=== PATIENT | male | born 1990 ===

== ENCOUNTER 2016-10-26 13:35 | Emergency (ER) | payer MEDICAID ==
[2016-10-26] MEDS ORDERED: Propofol 10 mg/ml Inj (20 ML) ONE (13:52)
[2016-10-26 14:13] VITALS: PULSE 84; RESP 16; TEMP 98.2; O2SAT 99
--- NOTE | 2016-10-26 14:52 | ED PDOC ---
HPI: General Adult Time Seen by Provider: 10/26/16 14:38 Chief Complaint (Nursing): Medical Clearance Chief Complaint (Provider): Scabies History Per: Patient History/Exam Limitations: no limitations Onset/Duration Of Symptoms: Days Have you had recent travel within the past 21 days to any of the following countries: [place], [place], [place] or [place]?: No Current Symptoms Are (Timing): Still Present Severity: Mild Additional Complaint(s): Pt states he was diagnosed with scabies last week. Pt states he only used half of the cream because he gave some to a friend. Pt states symptoms improved but are now getting worse again. Past Medical History Reviewed: Historical Data, Nursing Documentation, Vital Signs Vital Signs: Last Vital Signs Temp 98.2 F 10/26/16 14:11 Pulse 84 10/26/16 14:11 Resp 16 10/26/16 14:11 BP 107/57 L 10/26/16 14:11 Pulse Ox 99 10/26/16 14:52 - Medical History PMH: No Chronic Diseases Denies: Diabetes, Hepatitis, HIV, HTN, Seizures, Sexually Transmitted Disease - Surgical History Surgical History: No Surg Hx - Family History Family History: States: Unknown Family Hx - Living Arrangements Living Arrangements: With Family - Social History Current smoker - smoking cessation education provided: No Alcohol: None Drugs: Denies - Home Medications Home Medications: Ambulatory Orders Medication Instructions Recorded Permethrin 5% [Permethrin] 1 applic TP ONCE #1 tube 10/13/16 Permethrin 5% [Permethrin 5% Cream] 30 g TOP ONCE #30 tube 10/26/16 - Allergies Allergies/Adverse Reactions: Allergies Allergy/AdvReac Type Severity Reaction Status Date / Time No Known Allergies Allergy Verified 10/12/16 23:56 Review of Systems ROS Statement: Except As Marked, All Systems Reviewed And Found Negative Skin: Positive for: Rash Physical Exam - Reviewed Nursing Documentation Reviewed: Yes Vital Signs Reviewed: Yes - Physical Exam Appears: Positive for: Well, Non-toxic, No Acute Distress Head Exam: Positive for: ATRAUMATIC, NORMAL INSPECTION, NORMOCEPHALIC Skin: Positive for: Warm, Rash (scabbing areas on the hands, interdigit space with some burrowing ). Negative for: Normal Color Eye Exam: Positive for: Normal appearance ENT: Positive for: Normal ENT Inspection Neck: Positive for: Normal, Painless ROM Respiratory: Negative for: Accessory Muscle Use Back: Positive for: Normal Inspection Extremity: Positive for: Normal ROM. Negative for: Tenderness Neurologic/Psych: Positive for: Alert - ECG O2 Sat by Pulse Oximetry: 99 Disposition - Clinical Impression Clinical Impression: Scabies - Patient ED Disposition Is Patient to be Admitted: No Counseled Patient/Family Regarding: Diagnosis, Need For Followup, Rx Given - Disposition Referrals: [facility] [Outside] Disposition: Routine/Home Disposition Time: 14:51 Condition: GOOD Prescriptions: Permethrin 5% [Permethrin 5% Cream] 30 g TOP ONCE #30 tube Instructions: Scabies (ED)
[2016-10-26 15:20] VITALS: BP 111/61
== END 2016-10-26 15:19 | disposition home or self-care (01) ==
LOC: H.ER 13:35
DX: B86 Scabies (principal)

== ENCOUNTER 2018-04-08 03:06 | Emergency (ER) | payer MEDICAID, OTHER ==
[2018-04-08 03:20] VITALS: O2SAT 98
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
[2018-04-08 05:33] VITALS: BP 124/77; PULSE 76; RESP 16; TEMP 98
--- NOTE | 2018-04-08 08:56 | CT ---
Date of service: 04/08/2018 PROCEDURE: CT HEAD WITHOUT CONTRAST. HISTORY: head injury COMPARISON: None available. TECHNIQUE: Axial computed tomography images were obtained through the head/brain without intravenous contrast. Radiation dose: Total exam DLP = mGy-cm. This CT exam was performed using one or more of the following dose reduction techniques: Automated exposure control, adjustment of the mA and/or kV according to patient size, and/or use of iterative reconstruction technique. FINDINGS: HEMORRHAGE: No intracranial hemorrhage. BRAIN: No mass effect or edema. No atrophy or chronic microvascular ischemic changes. VENTRICLES: Unremarkable. No hydrocephalus. CALVARIUM: Unremarkable. PARANASAL SINUSES: Unremarkable as visualized. No significant inflammatory changes. MASTOID AIR CELLS: Unremarkable as visualized. No inflammatory changes. OTHER FINDINGS: None. IMPRESSION: Normal CT of the Head.
--- NOTE | 2018-04-08 09:11 | RAD ---
Date of service: 04/08/2018 PROCEDURE: Radiographs of the Left Shoulder HISTORY: injury, pain COMPARISON: No prior. FINDINGS: BONES: Normal. No fracture. JOINTS: Normal. Glenohumeral and acromioclavicular joints preserved. No osteoarthritis. SOFT TISSUES: Normal. OTHER FINDINGS: None. IMPRESSION: Normal radiographs of the left shoulder.
--- NOTE | 2018-04-08 09:17 | RAD ---
Date of service: 04/08/2018 HISTORY: injury, pain COMPARISON: No prior FINDINGS: BONES: Normal. No fracture. JOINTS: Normal. No osteoarthritis. SOFT TISSUE: Normal. OTHER FINDINGS: None . IMPRESSION: Normal Bone Xray.
== END 2018-04-08 05:33 ==
LOC: H.ER 03:06
DX: S09.90XA Unspecified injury of head, initial encounter (principal); M25.512 Pain in left shoulder; S00.01XA Abrasion of scalp, initial encounter; Y35.813A Legal intervention involving manhandling, suspect injured, initial encounter
CPT/HCPCS: 70450; 73010; 73030; 96372; 99284; J1885

== ENCOUNTER 2018-04-12 18:58 | Emergency (ER) | payer OTHER ==
[2018-04-12 19:09] VITALS: TEMP 98.2; O2SAT 98
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
[2018-04-12 21:00] LABS: BARBITURATES, UR NEGATIVE (NEGATIVE); BENZODIAZEPINES, UR NEGATIVE (NEGATIVE); OPIATES, UR NEGATIVE (NEGATIVE); PHENCYCLIDINE, UR NEGATIVE (NEGATIVE)
[2018-04-12 21:06] VITALS: BP 112/68; PULSE 76; RESP 16
--- NOTE | 2018-04-13 07:50 | CARD ---
APPROVED REPORT Date of service: 04/12/2018 EKG Measurement Heart [id number] <Conclusion> Normal sinus rhythm Voltage criteria for left ventricular hypertrophy Abnormal ECG
== END 2018-04-12 21:22 | disposition home or self-care (01) ==
LOC: H.ER 18:58
DX: S43.402A Unspecified sprain of left shoulder joint, initial encounter (principal); Y35.813A Legal intervention involving manhandling, suspect injured, initial encounter; R00.0 Tachycardia, unspecified

== ENCOUNTER 2018-05-02 08:11 | Emergency (ER) | payer OTHER ==
[2018-05-02] MEDS ORDERED: DiphenhydrAMINE 50 mg/ml Inj ONE (08:36)
[2018-05-02] MEDS ORDERED: DiphenhydrAMINE 50 mg/ml Inj IV STA (08:42)
[2018-05-02] MEDS ORDERED: Sodium Chloride 0.9% 1,000 ML IV SCH (08:45)
--- NOTE | 2018-05-02 09:07 | ED PDOC ---
HPI: SOB/CHF/COPD Time Seen by Provider: 05/02/18 08:18 Chief Complaint (Nursing): Shortness Of Breath Chief Complaint (Provider): Throat Foreign Body Sensation History Per: Patient History/Exam Limitations: no limitations Onset/Duration Of Symptoms: Hrs (x4) Additional Complaint(s): 27 year old male, with a past medical history of asthma, presenting for evaluation of throat pain x4 hours. Patient reports he used his inhaler around 4am and "felt something go down his throat". Patient states he afterwards went to lay down in his bed, but immediately ran to the bathroom to throw up. Patient states he continued to feel a foreign body sensation in his throat along with continued nausea and vomiting. Patient also states he felt his face go numb and swell, prompting him to present to ED. Patient reports no vomiting in ED, but continued dry heaves and some difficulty breathing. Patient otherwise denies any fever, chills, abdominal pain, back pain, and urinary or bowel complaints. PMD: None Past Medical History Reviewed: Historical Data, Nursing Documentation, Vital Signs Vital Signs: Last Vital Signs Temp 98.0 F 05/02/18 14:07 Pulse 70 05/02/18 14:07 Resp 18 05/02/18 14:07 BP 124/78 05/02/18 14:07 Pulse Ox 98 05/02/18 14:07 - Medical History PMH: Asthma Denies: Diabetes, Hepatitis, HIV, HTN, Seizures, Sexually Transmitted Disease - Family History Family History: States: Unknown Family Hx - Home Medications Home Medications: Ambulatory Orders Medication Instructions Recorded Permethrin 5% [Permethrin] 1 applic TP ONCE #1 tube 10/13/16 Permethrin 5% [Permethrin 5% Cream] 30 g TOP ONCE #30 tube 10/26/16 Acetaminophen [Acetaminophen 8 650 mg PO Q8 PRN #21 tablet.er 04/12/18 Hour] Ibuprofen [Motrin Tab] 600 mg PO Q6 PRN #20 tab 04/12/18 Lidocaine 2% Viscous 15 ml MM QID #100 bottle 05/02/18 - Allergies Allergies/Adverse Reactions: Allergies Allergy/AdvReac Type Severity Reaction Status Date / Time FISH Allergy vomiting Verified 04/12/18 19:04 and swelling Review of Systems ROS Statement: Except As Marked, All Systems Reviewed And Found Negative Constitutional: Negative for: Fever, Chills ENT: Positive for: Throat Pain Respiratory: Positive for: Shortness of Breath Gastrointestinal: Positive for: Nausea, Vomiting. Negative for: Abdominal Pain Musculoskeletal: Negative for: Back Pain Physical Exam - Reviewed Nursing Documentation Reviewed: Yes Vital Signs Reviewed: Yes - Physical Exam Appears: Positive for: Non-toxic, No Acute Distress Head Exam: Positive for: ATRAUMATIC, NORMAL INSPECTION, NORMOCEPHALIC Skin: Positive for: Normal Color, Warm, Dry Eye Exam: Positive for: EOMI, Normal appearance, PERRL ENT: Positive for: Normal ENT Inspection Neck: Positive for: Normal, Painless ROM, Supple Cardiovascular/Chest: Positive for: Regular Rate, Rhythm. Negative for: Murmur Respiratory: Positive for: Normal Breath Sounds. Negative for: Respiratory Distress Gastrointestinal/Abdominal: Positive for: Normal Exam, Soft. Negative for: Tenderness Back: Positive for: Normal Inspection. Negative for: L CVA Tenderness, R CVA Tenderness, Vertebral Tenderness Extremity: Positive for: Normal ROM. Negative for: Deformity Neurologic/Psych: Positive for: Alert, Oriented. Negative for: Motor/Sensory Deficits - Laboratory Results Result Diagrams: 05/02/18 08:30 05/02/18 08:30 - Radiology X-Ray: Viewed By Me, Read By Radiologist X-Ray Interpretation: No Acute Disease - Progress Re-evaluation Time: 13:00 Condition: Improved Medical Decision Making Medical Decision Makin Plan: -EKG -FERNANDO -Urine drug screen -CBC -CXR -Benadryl 25mg IV -NS 1L IVB -Solu-Medrol 125mg IVP -Zofran 4mg IV -woodyard operator -IV insertion -Reevaluation Scribe Attestation: Documented by Corey Vergara, acting as a scribe for Erika Melvin MD. Provider Scribe Attestation: All medical record entries made by the Scribe were at my direction and personally dictated by me. I have reviewed the chart and agree that the record accurately reflects my personal performance of the history, physical exam, medical decision making, and the department course for this patient. I have also personally directed, reviewed, and agree with the discharge instructions and disposition. Disposition - Clinical Impression Clinical Impression: Uvular swelling - Patient ED Disposition Is Patient to be Admitted: No Doctor Will See Patient In The: Office Counseled Patient/Family Regarding: Diagnosis, Need For Followup, Rx Given - Disposition Disposition: Routine/Home Disposition Time: 13:30 Condition: IMPROVED Prescriptions: Lidocaine 2% Viscous 15 ml MM QID #100 bottle Instructions: Sore Throat, Adult (DC) Forms: [facility] (Slovenian) - POA Present On Arrival: None
[2018-05-02 09:15] LABS: BASO % 0.6 % (0.0-2.0); EOS # 0.1 K/uL (0.0-0.7); EOS % 0.8 % (0.0-4.0); HEMOGLOBIN 16.3 g/dL (12.0-18.0); LYMPH # 2.1 K/uL (1.0-4.3); LYMPH % 26.3 % (20.0-40.0); MEAN CORPUSCULAR HEMOGLOBIN 31.7 pg (27.0-31.0); MEAN CORPUSCULAR HGB CONC 34.9 g/dL (33.0-37.0); MEAN PLATELET VOLUME 8.3 fl (7.2-11.7); MONO # 0.4 K/uL (0.0-0.8); MONO % 5.5 % (0.0-10.0); NEUT # 5.2 K/uL (1.8-7.0); NEUT % 66.8 % (50.0-75.0); NRBC % 0.1 % (0.0-0.0); RBC 5.13 Mil/uL (4.40-5.90); RED CELL DISTRIBUTION WIDTH 12.5 % (11.5-14.5); WHITE BLOOD COUNT 7.8 K/uL (4.8-10.8)
[2018-05-02 09:18] LABS: ALB/GLOB RATIO 1.2 (1.0-2.1); ALBUMIN 4.2 g/dL (3.5-5.0); ALT/SGPT 27 U/L (21-72); AST/SGOT 22 U/L (17-59); BLOOD UREA NITROGEN 12 mg/dl (9-20); CALCIUM 9.3 mg/dL (8.4-10.2); GFR NON-AFRICAN AMERICAN > 60
[2018-05-02 10:00] VITALS: O2SAT 98
[2018-05-02 10:02] VITALS: RESP 18
--- NOTE | 2018-05-02 10:21 | RAD ---
Date of service: 05/02/2018 HISTORY: something is stuck in throat after inhaler COMPARISON: 06/23/2012 FINDINGS: LUNGS: No active pulmonary disease. PLEURA: No significant pleural effusion identified, no pneumothorax apparent. CARDIOVASCULAR: Normal. OSSEOUS STRUCTURES: No significant abnormalities. VISUALIZED UPPER ABDOMEN: Normal. OTHER FINDINGS: None. IMPRESSION: No active disease.
[2018-05-02 12:59] LABS: BARBITURATES, UR NEGATIVE (NEGATIVE); BENZODIAZEPINES, UR NEGATIVE (NEGATIVE); OPIATES, UR NEGATIVE (NEGATIVE); PHENCYCLIDINE, UR NEGATIVE (NEGATIVE)
[2018-05-02 14:08] VITALS: BP 124/78; PULSE 70; TEMP 98
--- NOTE | 2018-05-02 17:58 | CARD ---
APPROVED REPORT Date of service: 05/02/2018 EKG Measurement Heart [id number] <Conclusion> Normal sinus rhythm Minimal voltage criteria for LVH, may be normal variant Borderline ECG
== END 2018-05-02 14:25 | disposition home or self-care (01) ==
LOC: H.ER 08:11
DX: R60.0 Localized edema (principal); R09.89 Other specified symptoms and signs involving the circulatory and respiratory systems
CPT/HCPCS: 71045; 80053; 80320; 80324; 80345; 80346; 80349; 80353; 80358; 80361; 83992; 85025; 93005; 96374; 96375; 99285; J1200; J2405; J2930; J7030

== ENCOUNTER 2018-11-16 22:10 | Emergency (ER) | payer SELFPAY ==
[2018-11-16 22:23] VITALS: RESP 18
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
[2018-11-16 23:36] LABS: BASO # 0.1 K/uL (0.0-0.2); BASO % 0.9 % (0.0-2.0); EOS # 0.2 K/uL (0.0-0.7); EOS % 1.2 % (0.0-4.0); HEMOGLOBIN 14.2 g/dL (12.0-18.0); LYMPH # 1.3 K/uL (1.0-4.3); LYMPH % 9.5 % (20.0-40.0); MEAN CELL VOLUME 92.3 fl (80.0-94.0); MEAN CORPUSCULAR HEMOGLOBIN 31.2 pg (27.0-31.0); MEAN CORPUSCULAR HGB CONC 33.8 g/dL (33.0-37.0); MONO # 0.6 K/uL (0.0-0.8); MONO % 4.9 % (0.0-10.0); NEUT % 83.5 % (50.0-75.0); PLATELET COUNT 306 K/uL (130-400); RBC 4.55 Mil/uL (4.40-5.90); RED CELL DISTRIBUTION WIDTH 13.2 % (11.5-14.5); WHITE BLOOD COUNT 13.2 K/uL (4.8-10.8)
[2018-11-16 23:50] LABS: ALB/GLOB RATIO 1.3 (1.0-2.1); ALBUMIN 4.3 g/dL (3.5-5.0); ALT/SGPT 23 U/L (21-72); AST/SGOT 22 U/L (17-59); BLOOD UREA NITROGEN 14 mg/dl (9-20); CALCIUM 9.4 mg/dL (8.4-10.2); GFR NON-AFRICAN AMERICAN > 60
[2018-11-17] MEDS ORDERED: Tdap Vaccine 0.5 ml Vial (10-64 yrs) IM ONE ×2 (00:28→00:42)
[2018-11-17 01:03] LABS: BARBITURATES, UR NEGATIVE (NEGATIVE); BENZODIAZEPINES, UR NEGATIVE (NEGATIVE); OPIATES, UR NEGATIVE (NEGATIVE); PHENCYCLIDINE, UR NEGATIVE (NEGATIVE)
[2018-11-17 01:39] LABS: BANDS 1 % (0-2); EOSINOPHIL 1 % (0-7); LYMPHOCYTE 11 % (20-50); MONOCYTE 4 % (0-10); NEUTROPHIL 83 % (42-75); PLATELET ESTIMATE NORMAL (NORMAL); TOTAL CELLS COUNTED 100
[2018-11-17 01:40] LABS: ANISOCYTOSIS SLIGHT; LARGE PLATELETS PRESENT; STOMATOCYTES SLIGHT
[2018-11-17 02:00] VITALS: BP 109/92; PULSE 74; TEMP 98.3
[2018-11-17 03:42] VITALS: O2SAT 98
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
== END 2018-11-17 01:58 | disposition home or self-care (01) ==
LOC: H.ER 22:10
DX: F43.20 Adjustment disorder, unspecified (principal); S00.93XA Contusion of unspecified part of head, initial encounter; S00.91XA Abrasion of unspecified part of head, initial encounter; S63.501A Unspecified sprain of right wrist, initial encounter; S43.409A Unspecified sprain of unspecified shoulder joint, initial encounter; J45.909 Unspecified asthma, uncomplicated; Y04.2XXA Assault by strike against or bumped into by another person, initial encounter
CPT/HCPCS: 70450; 70486; 72070; 72125; 73030; 73080; 73090; 73110; 80053; 85025; 90471; 90715; 99281; G0480

== ENCOUNTER 2018-12-05 15:05 | Emergency (ER) | payer SELFPAY ==
[2018-12-05 15:13] VITALS: PULSE 80; TEMP 98.8; O2SAT 99
--- NOTE | 2018-12-05 15:36 | ED PDOC ---
HPI: Psych/Substance Abuse Time Seen by Provider: 12/05/18 15:17 Chief Complaint (Nursing): Medical Clearance Chief Complaint (Provider): Medical Clearance History Per: Patient, Other (PD) History/Exam Limitations: no limitations Associated Symptoms: denies: Suicidal Thoughts, Suicidal Plan Involuntary Hold By: Local Law Enforcement Additional Complaint(s): 28 year old male presents with [facility] for medical and psychiatric clearance for incarceration. Patient is in custody for drug possession. He states he smokes marijuana, last smoked marijuana this morning. Otherwise, patient denies any physical complaints at present. Also denies suicidal ideation, homicidal ideation, or A/V hallucinations. PMD: No Family Provider Past Medical History Reviewed: Historical Data, Nursing Documentation, Vital Signs Vital Signs: Last Vital Signs Temp 98.8 F 12/05/18 15:13 Pulse 80 12/05/18 15:13 Resp 16 12/05/18 15:13 BP 122/85 12/05/18 15:13 Pulse Ox 99 12/05/18 15:13 Primary Care Provider: FAMILY PROVIDER,NO - Medical History PMH: Asthma, Bipolar Disorder - Surgical History Other surgeries: right hand - Family History Family History: States: Unknown Family Hx - Social History Drugs: Cannabis - Home Medications Home Medications: Ambulatory Orders Medication Instructions Recorded Permethrin 5% [Permethrin] 1 applic TP ONCE #1 tube 10/13/16 Permethrin 5% [Permethrin 5% Cream] 30 g TOP ONCE #30 tube 10/26/16 Acetaminophen [Acetaminophen 8 650 mg PO Q8 PRN #21 tablet.er 04/12/18 Hour] Ibuprofen [Motrin Tab] 600 mg PO Q6 PRN #20 tab 04/12/18 Lidocaine 2% Viscous 15 ml MM QID #100 bottle 05/02/18 - Allergies Allergies/Adverse Reactions: Allergies Allergy/AdvReac Type Severity Reaction Status Date / Time FISH Allergy vomiting Verified 12/05/18 15:12 and swelling Review of Systems ROS Statement: Except As Marked, All Systems Reviewed And Found Negative Cardiovascular: Negative for: Chest Pain Respiratory: Negative for: Shortness of Breath Gastrointestinal: Negative for: Nausea, Vomiting, Abdominal Pain, Diarrhea Psych: Negative for: Suicidal ideation, Other (homicidal ideation, hallucinations ) Physical Exam - Reviewed Nursing Documentation Reviewed: Yes Vital Signs Reviewed: Yes - Physical Exam Comments: GENERAL APPEARANCE: Patient is awake, alert, oriented x 3, in no acute distress. Resting comfortably. SKIN: Warm, dry; (-) cyanosis HEAD: Atraumatic EYES: (-) conjunctival injection ENMT: Mucous membranes moist. Airway patent: (-) stridor. NECK: Supple, FROM HEART AND CARDIOVASCULAR: (-) irregularity CHEST AND RESPIRATORY: (-) rales, (-) rhonchi, (-) wheezes; breath sounds equal. Respirations even and nonlabored. ABDOMEN: Soft, (-) distention, (-) tenderness, (-) guarding. NEURO AND PSYCH: Mental status as above. Affect: flat. (-) facial asymmetry. Gait: steady. Speech: clear. - ECG O2 Sat by Pulse Oximetry: 99 (RA) Pulse Ox Interpretation: Normal Medical Decision Making Medical Decision Making: Time: 1529 Impression: 28yo male presents for medical and psychiatric clearance for incarceration Plan: --Crisis evaluation --Re-evaluation 0 Per crisis evaluation, patient to be discharged into PD custody with the diagnosis of adjustment disorder per Dr Quinn. On re-evaluation, patient offers no complaints. On exam, patient remains AAOx3, in no acute distress. Vitals stable. Lab/Diagnostic results d/w the patient in great detail. Diagnosis of medical clearance for incarceration, adjustment disorder d/w the patient. Based on history, exam and diagnostic results, plan will be for discharge into PD custody. Return to the emergency room at any time for any new or worsening symptoms. Patient states he fully agrees with and understands discharge instructions. States that he agrees with the plan and disposition. Verbalized and repeated discharge instructions and plan. I have given the patient opportunity to ask any additional questions. Scribe Attestation: Documented by Alpesh Purcell, acting as a scribe for Ester Cote PA-C. Provider Scribe Attestation: All medical record entries made by the Scribe were at my direction and personally dictated by me. I have reviewed the chart and agree that the record accurately reflects my personal performance of the history, physical exam, medical decision making, and the department course for this patient. I have also personally directed, reviewed, and agree with the discharge instructions and disposition. Disposition - Clinical Impression Clinical Impression: Medical clearance for incarceration, Adjustment disorder - Patient ED Disposition Is Patient to be Admitted: No Counseled Patient/Family Regarding: Studies Performed, Diagnosis, Need For Followup - Disposition Referrals: [facility] [Outside] [facility] [Outside] Disposition: Discharged/Transfer to Law Enforcement Disposition Time: 16:50 Condition: STABLE Additional Instructions: PATIENT IS MEDICALLY AND PSYCHIATRICALLY CLEARED/STABLE FOR INCARCERATION. The emergency medical care you received today was directed at your acute symptoms. If you were prescribed any medication, please fill it and take as directed. It may take several days for your symptoms to resolve. Return to the Emergency Department if your symptoms worsen, do not improve, or if you have any other problems. Please contact your doctor in 2 days for re-evaluation and follow up / or call one of the physicians/clinics you have been referred to that are listed on the Patient Visit Information form that is included in your discharge packet. Bring any paperwork you were given at discharge with you along with any medications you are taking to your follow up visit. Our treatment cannot replace ongoing medical care by a primary care provider (PCP) outside of the emergency department. Instructions: Adjustment Disorder, General (DC) Forms: [employer] (Micronesian) Print Language: [place] RICAN - POA Present On Arrival: None
[2018-12-05 20:03] VITALS: BP 128/88; RESP 20
== END 2018-12-05 19:00 ==
LOC: H.ER 15:05
DX: F43.20 Adjustment disorder, unspecified (principal)